=== PATIENT | male | born 1980 | race Two or more races ===

== ENCOUNTER 2018-01-18 16:21 | Emergency (ER) | payer SELFPAY ==
[2018-01-18 17:24] LABS: BILIRUBIN,URINE NEGATIVE (NEG); GLUCOSE,URINE NEGATIVE (NEG); NITRITE,URINE NEGATIVE (NEG); PROTEIN,URINE NEGATIVE (NEG-TRACE); UROBILINOGEN,URINE 0.2 mg/dL (0.2 mg/dL)
[2018-01-18 17:28] LABS: CLARITY,URINE CLEAR; COLOR,URINE STRAW
[2018-01-18 17:29] LABS: BASO # 0.1 x10^3/uL (0.0-0.2); BASO % 1 % (0-3); EOS # 1.5 x10^3/uL (0.0-0.7); EOS % 25 % (0-3); HEMATOCRIT 46.3 % (39.0-53.0); HEMOGLOBIN 15.6 g/dL (13.0-17.5); LYMPH # 2.1 x10^3/uL (1.0-4.8); LYMPH % 35 % (24-48); MEAN CORPUSCULAR HEMOGLOBIN 28 pg (25-35); MEAN CORPUSCULAR HGB CONC 34 g/dL (31-37); MEAN CORPUSCULAR VOLUME 84 fL (79-100); MONO # 0.4 x10^3/uL (0.0-1.1); MONO % 7 % (0-9); NEUT % 33 % (31-73); PLATELET COUNT 250 x10^3/uL (140-400); RED BLOOD COUNT 5.51 x10^6/uL (4.30-5.70); RED CELL DISTRIBUTION WIDTH 13.6 % (11.5-14.5)
[2018-01-18 17:30] LABS: ADD MAN DIFF? YES; BACTERIA,URINE 0 /HPF (0-FEW); RBC,URINE OCC /HPF (0-2); SQUAMOUS EPITHELIAL CELL,UR OCC /LPF; WBC,URINE 0 /HPF (0-4)
[2018-01-18] MEDS: IV NORMAL SALINE 1000ML BAG 1,000 ML IV (17:35)
[2018-01-18] MEDS: FAMOTIDINE 20 MG/2 ML VIAL IVP (17:39)
[2018-01-18 17:41] LABS: ANION GAP 7 (6-14); BLOOD UREA NITROGEN 16 mg/dL (8-26); BUN/CREATININE RATIO 15 (6-20); CALCIUM 9.3 mg/dL (8.5-10.1); CARBON DIOXIDE 29 mmol/L (21-32); CHLORIDE 105 mmol/L (98-107); CREATININE 1.1 mg/dL (0.7-1.3); GFR 74.5; GLUCOSE 98 mg/dL (70-99); POTASSIUM 3.6 mmol/L (3.5-5.1); SODIUM 141 mmol/L (136-145)
[2018-01-18] MEDS: ONDANSETRON PF 4 MG/2 ML VIAL. IV (17:42)
[2018-01-18] MEDS: fentaNYL PF VIAL 100 MCG/2 ML VIAL IV (17:44)
[2018-01-18 17:50] LABS: % BASOS 2 % (0-3); % EOS 23 % (0-5); % LYMPHS 34 % (24-48); % MONOS 3 % (0-10); % SEGS 38 % (35-66)
[2018-01-18 17:51] LABS: ALBUMIN/GLOBULIN RATIO 1.1 (1.0-1.7); ALK PHOS 72 U/L (46-116); ALT (SGPT) 48 U/L (16-63); AST (SGOT) 22 U/L (15-37); LIPASE 198 U/L (73-393); PLT ESTIMATE ADEQUATE (ADEQUATE); TOTAL BILIRUBIN 0.4 mg/dL (0.2-1.0); TOTAL PROTEIN 7.7 g/dL (6.4-8.2)
== END 2018-01-18 20:00 | disposition home or self-care (01) ==
LOC: ER 16:21
DX: R10.31 Right lower quadrant pain (principal); R35.0 Frequency of micturition
CPT/HCPCS: 36415; 74176; 80053; 81001; 83690; 85007; 85025; 96361; 96374; 96375; 99285-25; J2405; J3010; J7030; S0028